=== PATIENT | male | born 1980 | race Caucasian/White ===

== ENCOUNTER 2023-06-20 08:19 | Emergency (ER) | payer OTHER, SELFPAY ==
--- NOTE | 2023-06-20 08:23 | ED.GENADULT ---
HPI - General Adult General Chief complaint: Wound/Laceration Stated complaint: cut by diana nail Time Seen by Provider: 06/20/23 08:22 Source: patient Mode of arrival: Ambulatory Limitations: no limitations History of Present Illness HPI narrative: 42-year-old male who is here for evaluation with the injury that he sustained to his right hand. He works at a [employer]. He states he was moving some lumbar and did not realize that there was a nail in 1 of the boards. He did cut the palm of his right hand. He covered it with a towel and then came to the emergency department. He is unsure when his last tetanus shot was. Related Data Allergies Allergy/AdvReac Type Severity Reaction Status Date / Time acetaminophen [From Vicodin] AdvReac Rash Verified 06/20/23 08:29 hydrocodone [From Vicodin] AdvReac Rash Verified 06/20/23 08:29 Review of Systems Constitutional Constitutional: Reports system reviewed and no additional complaints, except as documented Integumentary/Breasts Skin/Breast: Reports system reviewed and no additional complaints, except as documented Patient History Social History Smoking Status: Never smoker Exam Initial Vital Signs Initial Vital Signs: Vital Signs Temperature 98.1 F 06/20/23 08:25 Pulse Rate 86 06/20/23 08:25 Respiratory Rate 16 06/20/23 08:25 Blood Pressure 138/84 06/20/23 08:25 Pulse Oximetry 98 06/20/23 08:25 Oxygen Delivery Method Room Air 06/20/23 08:25 Skin Other: 2 cm laceration on the palmar aspect of the right hand at the base of the thumb. No active bleeding. Extrem Other: Full range of motion of the MCP and IP joint of the right thumb. Procedures Laceration Repair Laceration 1: Site: hand Side (If applicable): right Size (cm): 2 Description: linear Depth: simple, single layer Local Anesthetic: lidocaine 1% Amount of anesthesia used (mL): 4 Pre-repair: wound explored and irrigated extensively Skin layer closed with: nylon Skin layer suture size: 5-0 Number of sutures: 3 Technique: simple, interrupted Course Orders Ordered: Discontinued Medications Diphtheria/Tetanus/Acell Pertussis (Tet,Diph,Pertuss(Acell),Vac/Pf 0.5 Ml Syringe) 0.5 ml IM .ONCE ONE Stop: 06/20/23 08:28 Lidocaine HCl (Lidocaine 2% Inj Mdv 20ml) 20 ml INJ INTRA-OP ONE Stop: 06/20/23 08:28 Lidocaine HCl (Lidocaine 1% 20 Ml) 20 ml INJ INTRA-OP ONE Stop: 06/20/23 08:33 Vital Signs Vital signs: Vital Signs - 8 hr 06/20/23 08:25 Temperature 98.1 F Pulse Rate 86 Respiratory Rate 16 Blood Pressure 138/84 Pulse Oximetry 98 Oxygen Delivery Method Room Air Medical Decision Making MDM Narrative Medical decision making narrative: Patient is neurovascularly intact. Given the location of the wound we did put stitches in place. He was given care instructions and return precautions. He expressed understanding and agreement. Discharge Plan Departure Patient Disposition: Home Clinical Impression: Laceration Instructions: DI for Laceration Repair Activity Restrictions/Additional Instructions: The stitches will need to be removed in approximately 7-10 days. You can go to the walk-in clinic or your primary doctor for this. I would recommend that you keep the area covered with a bandage. You can shower like normal. Return to the emergency department for new or worsening symptoms. Stand Alone Forms: Patient Portal/API
[2023-06-20 08:25] VITALS: BP 138/84; PULSE 86; RESP 16; TEMP 36.7; O2SAT 98; BMI 32.5
[2023-06-20] MEDS: TET,DIPH,PERTUSS(ACELL),VAC/PF 0.5 ML SYRINGE IM (08:39)
[2023-06-20] MEDS: LIDOCAINE 1% 20 ML INJ (08:40)
== END 2023-06-20 08:50 | disposition home or self-care (01) ==
PROVIDERS: Emergency Provider Emergency Medicine
DX: S61.411A Laceration without foreign body of right hand, initial encounter (principal); W45.0XXA Nail entering through skin, initial encounter; Z23 Encounter for immunization
CPT/HCPCS: 12001; 90471; 99283; 90715